=== PATIENT | female | born 1980 | race Caucasian/White ===

== ENCOUNTER → 2016-12-19 | Outpatient (CLI) | payer OTHER ==
[2016-12-19 13:13] LABS: Estradiol 66 pg/mL
[2016-12-19 15:44] LABS: DHEA Sulfate 91.3 ug/dL (26.0-430.0)
== END | disposition home or self-care (01) ==
LOC: LABWHC1 08:11
PROVIDERS: ATTEND Family Medicine
DX: E34.9 Endocrine disorder, unspecified (principal)
CPT/HCPCS: 36415; 82627; 82670; 84144; 84402; 84403

== ENCOUNTER → 2017-06-21 | Outpatient (CLI) | payer OTHER | END | disposition home or self-care (01) | LOC: LABWHC1 13:54 | PROVIDERS: ATTEND Family Medicine | DX: N95.1 Menopausal and female climacteric states (principal) | CPT/HCPCS: 36415; 82626; 82670; 84144; 84402; 84403 ==

== ENCOUNTER → 2019-11-23 | Outpatient (CLI) | payer OTHER ==
--- NOTE | 2019-11-24 08:52 | US ---
EXAMINATION TYPE: US pelvis complete transvag DATE OF EXAM: 11/23/2019 COMPARISON: Pelvic ultrasound January 10, 2010 CLINICAL HISTORY: R10.2 Pelvic pain. Hx ablation x years ago. Cramping. Hx ovarian cysts TECHNIQUE: . Transabdominal sonographic images of the pelvis were acquired. Transvaginal sonographi c images were medically necessary to better assess the following anatomy: endometrium Date of LMP: unknown, EXAM MEASUREMENTS: Uterus: 7.9 x 5.7 x 5.2 cm Endometrial Stripe: 0.5 cm-estimated Right Ovary: 2.4 x 1.2 x 0.8 cm Left Ovary: 2.6 x 1.1 x 1.1 cm 1. Uterus: Retroverted Heterogenous 2. Endometrium: suboptimal visualization due to ablation 3. Right Ovary: wnl 4. Left Ovary: wnl 5. Bilateral Adnexa: free fluid seen in right adnexa 6. Posterior cul-de-sac: free fluid Cervix-nabothian cysts Heterogeneous uterus with endometrium measuring 5 to 7 mm. Small amount of free fluid in the pelvis e xtending towards right adnexa. Both ovaries identified. Ovaries somewhat small in size. Ovaries show no measurable follicles. No leydi picious adnexal masses. IMPRESSION: Small amount of free fluid in the pelvis extending towards right adnexa of uncertain etio logy.
== END | disposition home or self-care (01) ==
LOC: RADUSMAIN 17:28
PROVIDERS: ATTEND Family Medicine
DX: R93.41 Abnormal radiologic findings on diagnostic imaging of renal pelvis, ureter, or bladder (principal)
CPT/HCPCS: 76830; 76856

== ENCOUNTER 2020-11-11 11:58 | Emergency (ER) | payer OTHER ==
[2020-11-11 12:05] VITALS: PULSE 70; TEMP 98.5
[2020-11-11] MEDS ORDERED: SODIUM CHLORIDE 0.9% 500 ML 500 ML IV ONE (12:52)
[2020-11-11 13:43] LABS: ALT 21 U/L (4-34); AST 28 U/L (14-36); African American GFR (CKD) >90 (>60 ml/min/1.73 sqM); Albumin 4.2 g/dL (3.5-5.0); Alkaline Phosphatase 65 U/L (38-126); Anion Gap 4 mmol/L; Blood Urea Nitrogen 10 mg/dL (7-17); Calcium 9.5 mg/dL (8.4-10.2); Carbon Dioxide 27 mmol/L (22-30); Chloride 107 mmol/L (98-107); Glucose 92 mg/dL (74-99); Lipase 93 U/L (23-300); Non-African American GFR(CKD) >90 (>60 ml/min/1.73 sqM); Potassium 4.3 mmol/L (3.5-5.1); Sodium 138 mmol/L (137-145); Total Bilirubin 0.6 mg/dL (0.2-1.3)
[2020-11-11 13:46] LABS: Basophils # (A) 0.1 k/uL (0-0.2); Basophils % (A) 1 %; Eosinophils # (A) 0.1 k/uL (0-0.7); Eosinophils % (A) 2 %; HCT 44.2 % (34.0-46.0); HGB 15.4 gm/dL (11.4-16.0); Lymphocytes # (A) 1.3 k/uL (1.0-4.8); Lymphocytes % (A) 25 %; MCH 30.1 pg (25.0-35.0); MCHC 34.8 g/dL (31.0-37.0); MCV 86.4 fL (80.0-100.0); Mean Platelet Volume 7.2; Monocytes # (A) 0.3 k/uL (0-1.0); Monocytes % (A) 6 %; Neutrophils # (A) 3.4 k/uL (1.3-7.7); Neutrophils % (A) 64 %; Platelet Count 209 k/uL (150-450); RBC 5.12 m/uL (3.80-5.40); RDW 12.6 % (11.5-15.5); WBC 5.2 k/uL (3.8-10.6)
[2020-11-11 13:48] LABS: Appearance,Urine Clear (Clear); Bilirubin,Urine Negative (Negative); Blood,Urine Negative (Negative); Color,Urine Yellow; Glucose,Urine (UA) Negative (Negative); Ketones,Urine Negative (Negative); Leukocyte Esterase,Urine Negative (Negative); Nitrite,Urine Negative (Negative); PH, Urine 6.5 (5.0-8.0); Protein,Urine Negative (Negative); Specific Gravity,Urine 1.014 (1.001-1.035); Urobilinogen,Urine <2.0 mg/dL (<2.0)
--- NOTE | 2020-11-11 14:06 | US ---
EXAMINATION TYPE: US abdomen limited DATE OF EXAM: 11/11/2020 COMPARISON: CT 12/13/2009 CLINICAL HISTORY: liver, gallbladder. Area visualized on CT at [facility] EXAM MEASUREMENTS: Liver Length: 13.0 cm Gallbladder Wall: 0.2 cm CBD: 0.3 cm Right Kidney: 9.3 x 5.0 x 5.0 cm Pancreas: Pancreatic head obscured by bowel gas, visualized portions appear wnl Liver: Hyperechoic area visualized measuring 3.2 x 2.7 x 2.6 cm, possible hemangioma vs other Gallbladder: wnl Evidence for sonographic Dawson's sign: No CBD: wnl Right Kidney: No hydronephrosis or masses seen IMPRESSION: 1. Suspected hemangioma within the liver. Consider confirmation with contrast CT abdomen or MRI.
--- NOTE | 2020-11-11 15:14 | ED ---
Female Urogenital HPI - General Chief complaint: Urogenital Stated complaint: Kidney pain Time Seen by Provider: 11/11/20 12:13 Source: patient Mode of arrival: ambulatory Limitations: no limitations - History of Present Illness Initial comments: 40yo female prsenting for cc of b/l low back pain. pt statse she keeping getting positive urine cultures for GBS. she states she has been on 3 antibiotics. initially she had some dysuria about 1 month ago and she states that has gone away. denies fevers, nausea, vomiting, abdominal or pelvic pain. Denies noting any vaginal discharge or pain wtih sex. patient denies injury to back. pt statse CT wo contrast revealed liver lesion but no kidney stones. pt statse she is concerned that the antibiotics are causing symptoms. no additional complaints. pt appears well nontoxic in no acute distress. - Related Data Home Medications Medication Instructions Recorded Confirmed Ibuprofen [Motrin Ib] 1,000 mg PO Q8H PRN 11/11/20 11/11/20 Thyroid,Pork [[place] Thyroid] 15 mg PO DAILY 11/11/20 11/11/20 Allergies Allergy/AdvReac Type Severity Reaction Status Date / Time hydrocodone bitartrate Allergy Rash/Hives Verified 11/11/20 13:31 [From Vicodin] meperidine HCl [From Demerol] Allergy Rash/Hives Verified 11/11/20 13:31 Review of Systems ROS Statement: Those systems with pertinent positive or pertinent negative responses have been documented in the HPI. ROS Other: All systems not noted in ROS Statement are negative. Past Medical History Additional Past Medical History / Comment(s): migraines, kidney stones History of Any Multi-Drug Resistant Organisms: None Reported Past Surgical History: No Surgical Hx Reported Past Psychological History: No Psychological Hx Reported Past Alcohol Use History: None Reported Past Drug Use History: None Reported General Exam - General Exam Comments Initial Comments: General: The patient is awake and alert, in no distress, and does not appear acutely ill. Eye: Pupils are equal, round and reactive to light, extra-ocular movements are intact. No nystagmus. There is normal conjunctiva bilaterally. No signs of icterus. Ears, nose, mouth and throat: There are moist mucous membranes and no oral lesions. Neck: The neck is supple, there is no tenderness or JVD. Cardiovascular: There is a regular rate and rhythm. No murmur, rub or gallop is appreciated. Respiratory: Lungs are clear to auscultation, respirations are non-labored, breath sounds are equal. No wheezes, stridor, rales, or rhonchi. Gastrointestinal: Soft, non-distended, non-tender abdomen without masses or organomegaly noted. There is no rebound or guarding present. No CVA tenderness. : Thin white discharge in vault, moderate amount, cervical lesion noted and discussed with patient during exam. Musculoskeletal: Normal inspection of back no midline tenderenss bandlike tenderness over lumbar spine. Normal ROM, no tenderness. Strength 5/5. Sensation intact. Pulses equal bilaterally 2+. Neurological: A&O x 3. CN II-XII intact, There are no obvious motor or sensory deficits. Coordination appears grossly intact. Speech is normal. Skin: Skin is warm and dry and no rashes or lesions are noted. Psychiatric: Cooperative, appropriate mood & affect, normal judgment. Limitations: no limitations Course Vital Signs 11/11/20 11/11/20 12:00 15:33 Temperature 98.5 F Pulse Rate 70 70 Respiratory 18 16 Rate Blood Pressure 144/84 122/79 O2 Sat by Pulse 100 99 Oximetry Medical Decision Making - Medical Decision Making Labs stable. Pain below CVA area. no stone on CT report sent from PCP. US liver feels findings most consistent with hemangioma patient has no right upper quadrant pain. pt urine unremarkable. afebrile normal kidney studies. at this time urine culture and vaginal cultures pending. pt is to f/u with OBGYN and PCP> discharged appearing well, recommended contrast CT for liver evaluation or MRI. Attending agreeable to care plan. - Lab Data Result diagrams: 11/11/20 13:18 11/11/20 13:18 Lab Results 11/11/20 11/11/20 11/11/20 Range/Units 13:18 13:18 13:18 WBC 5.2 (3.8-10.6) k/uL RBC 5.12 (3.80-5.40) m/uL Hgb 15.4 (11.4-16.0) gm/dL Hct 44.2 (34.0-46.0) % MCV 86.4 (80.0-100.0) fL MCH 30.1 (25.0-35.0) pg MCHC 34.8 (31.0-37.0) g/dL RDW 12.6 (11.5-15.5) % Plt Count 209 (150-450) k/uL MPV 7.2 Neutrophils % 64 % Lymphocytes % 25 % Monocytes % 6 % Eosinophils % 2 % Basophils % 1 % Neutrophils # 3.4 (1.3-7.7) k/uL Lymphocytes # 1.3 (1.0-4.8) k/uL Monocytes # 0.3 (0-1.0) k/uL Eosinophils # 0.1 (0-0.7) k/uL Basophils # 0.1 (0-0.2) k/uL Sodium (137-145) mmol/L Potassium (3.5-5.1) mmol/L Chloride (98-107) mmol/L Carbon Dioxide (22-30) mmol/L Anion Gap mmol/L BUN (7-17) mg/dL Creatinine (0.52-1.04) mg/dL Est GFR (CKD-EPI)AfAm (>60 ml/min/1.73 sqM) Est GFR (CKD-EPI)NonAf (>60 ml/min/1.73 sqM) Glucose (74-99) mg/dL Calcium (8.4-10.2) mg/dL Total Bilirubin (0.2-1.3) mg/dL AST (14-36) U/L ALT (4-34) U/L Alkaline Phosphatase (38-126) U/L Total Protein (6.3-8.2) g/dL Albumin (3.5-5.0) g/dL Lipase (23-300) U/L Urine Color Yellow Urine Appearance Clear (Clear) Urine pH 6.5 (5.0-8.0) Ur Specific [place] 1.014 (1.001-1.035) Urine Protein Negative (Negative) Urine Glucose (UA) Negative (Negative) Urine Ketones Negative (Negative) Urine Blood Negative (Negative) Urine Nitrite Negative (Negative) Urine Bilirubin Negative (Negative) Urine Urobilinogen <2.0 (<2.0) mg/dL Ur Leukocyte Esterase Negative (Negative) Urine HCG, Qual Not Detected (Not Detectd) Trichomonas Ag (Rapid) (Negative) 11/11/20 11/11/20 Range/Units 13:18 16:00 WBC (3.8-10.6) k/uL RBC (3.80-5.40) m/uL Hgb (11.4-16.0) gm/dL Hct (34.0-46.0) % MCV (80.0-100.0) fL MCH (25.0-35.0) pg MCHC (31.0-37.0) g/dL RDW (11.5-15.5) % Plt Count (150-450) k/uL MPV Neutrophils % % Lymphocytes % % Monocytes % % Eosinophils % % Basophils % % Neutrophils # (1.3-7.7) k/uL Lymphocytes # (1.0-4.8) k/uL Monocytes # (0-1.0) k/uL Eosinophils # (0-0.7) k/uL Basophils # (0-0.2) k/uL Sodium 138 (137-145) mmol/L Potassium 4.3 (3.5-5.1) mmol/L Chloride 107 (98-107) mmol/L Carbon Dioxide 27 (22-30) mmol/L Anion Gap 4 mmol/L BUN 10 (7-17) mg/dL Creatinine 0.59 (0.52-1.04) mg/dL Est GFR (CKD-EPI)AfAm >90 (>60 ml/min/1.73 sqM) Est GFR (CKD-EPI)NonAf >90 (>60 ml/min/1.73 sqM) Glucose 92 (74-99) mg/dL Calcium 9.5 (8.4-10.2) mg/dL Total Bilirubin 0.6 (0.2-1.3) mg/dL AST 28 (14-36) U/L ALT 21 (4-34) U/L Alkaline Phosphatase 65 (38-126) U/L Total Protein 7.0 (6.3-8.2) g/dL Albumin 4.2 (3.5-5.0) g/dL Lipase 93 (23-300) U/L Urine Color Urine Appearance (Clear) Urine pH (5.0-8.0) Ur Specific [place] (1.001-1.035) Urine Protein (Negative) Urine Glucose (UA) (Negative) Urine Ketones (Negative) Urine Blood (Negative) Urine Nitrite (Negative) Urine Bilirubin (Negative) Urine Urobilinogen (<2.0) mg/dL Ur Leukocyte Esterase (Negative) Urine HCG, Qual (Not Detectd) Trichomonas Ag (Rapid) Negative (Negative) Disposition Clinical Impression: Back pain, Vaginal discharge, Hemangioma Disposition: HOME SELF-CARE Condition: Good Instructions (If sedation given, give patient instructions): Flank Pain (ED), Vaginal Discharge (ED) Additional Instructions: Please use medication as discussed. Please follow-up with family doctor in the next 2 days, Dr. Brantley for hemangioma and OBGYN for discharge/PAP. Please return to emergency room if the symptoms increase or worsen or for any other concerns. Is patient prescribed a controlled substance at d/c from ED?: No Referrals: Ihsan Gayle III, MD [Primary Care Provider] - 1-2 days Deborah Brantley MD [STAFF PHYSICIAN] - 1-2 days Evelia Harmon DO [Doctor of Osteopathic Medicine] - 1-2 days Time of Disposition: 15:13
[2020-11-11 15:35] VITALS: BP 122/79; RESP 16
[2020-11-12 14:53] LABS: C. trachomatis,PCR Negative (Neg,Equiv); Chlamydia trachomatis Source Vagina; N. gonorrhoeae,PCR Negative (Neg,Equiv); Neisseria Source Vagina
== END 2020-11-11 15:35 | disposition home or self-care (01) ==
LOC: EC 11:58
DX: D18.00 Hemangioma unspecified site (principal); N89.8 Other specified noninflammatory disorders of vagina; M54.5 Low back pain; Z79.890 Hormone replacement therapy; Z88.5 Allergy status to narcotic agent; Z87.442 Personal history of urinary calculi
CPT/HCPCS: 36415; 76705; 80053; 81003; 81025; 83690; 85025; 87070; 87491; 87591; 87808; 99284

== ENCOUNTER → 2020-12-07 | Outpatient (CLI) | payer OTHER ==
--- NOTE | 2020-12-08 07:32 | XR ---
EXAMINATION TYPE: XR elbow complete LT DATE OF EXAM: 12/07/2020 COMPARISON: None HISTORY: Pain, fall TECHNIQUE: Three-view left elbow FINDINGS: Radius aligns normally with the humerus. Anterior fat pad is normal. No elevation of softball umpire ior fat pad is evident. No acute fractures or dislocations are evident. IMPRESSION: 1. Normal three-view left elbow
== END | disposition home or self-care (01) ==
LOC: RADXRMAIN 15:45
PROVIDERS: ATTEND Family Medicine
DX: M25.522 Pain in left elbow (principal)

== ENCOUNTER → 2021-08-11 | Outpatient (CLI) | payer OTHER ==
[2021-08-11 10:52] LABS: Basophils # (A) 0.05 X 10*3/uL (0.00-0.10); Eosinophils # (A) 0.18 X 10*3/uL (0.04-0.35); Eosinophils % (A) 3.5 %; HCT 39.3 % (37.2-46.3); HGB 13.1 g/dL (12.0-15.0); Lymphocytes # (A) 1.47 X 10*3/uL (0.90-5.00); Lymphocytes % (A) 28.4 %; MCH 29.2 pg (27.0-32.0); MCHC 33.3 g/dL (32.0-37.0); MCV 87.7 fL (80.0-97.0); Monocytes # (A) 0.55 X 10*3/uL (0.20-1.00); Monocytes % (A) 10.6 %; Neutrophils # (A) 2.92 X 10*3/uL (1.80-7.70); Neutrophils % (A) 56.3 %; Platelet Count 231 X 10*3/uL (140-440); RBC 4.48 X 10*6/uL (4.10-5.20); RDW 12.8 % (11.5-14.5); WBC 5.18 X 10*3/uL (4.50-10.00)
== END | disposition home or self-care (01) ==
LOC: LABWHC1 07:54
PROVIDERS: ATTEND Family Medicine
DX: N95.1 Menopausal and female climacteric states (principal); E03.9 Hypothyroidism, unspecified
CPT/HCPCS: 36415; 82306; 82670; 82728; 84443; 84481; 85025

== ENCOUNTER → 2022-11-09 | Outpatient (CLI) | payer OTHER ==
[2022-11-09 23:19] LABS: Basophils # (A) 0.07 X 10*3/uL (0.00-0.10); Basophils % (A) 1.2 %; Eosinophils # (A) 0.18 X 10*3/uL (0.04-0.35); HCT 38.7 % (37.2-46.3); HGB 12.7 g/dL (12.0-15.0); Immature Grans, Automated 0.2 %; Lymphocytes # (A) 1.63 X 10*3/uL (0.90-5.00); Lymphocytes % (A) 26.8 %; MCH 29.4 pg (27.0-32.0); MCHC 32.8 g/dL (32.0-37.0); MCV 89.6 fL (80.0-97.0); Mean Platelet Volume 10.4 fL (9.5-12.2); Monocytes # (A) 0.67 X 10*3/uL (0.20-1.00); NRBC Per 100 WBC 0 /100 WBCS (0.0-0.0); Neutrophils # (A) 3.52 X 10*3/uL (1.80-7.70); Neutrophils % (A) 57.8 %; Platelet Count 268 X 10*3/uL (140-440); RBC 4.32 X 10*6/uL (4.10-5.20); RDW 12.7 % (11.5-14.5); WBC 6.08 X 10*3/uL (4.50-10.00)
[2022-11-10 00:05] LABS: Estradiol 31.4 pg/mL; T4, Free (Free Thyroxine) 1.17 ng/dL (0.800-1.800)
== END | disposition home or self-care (01) ==
LOC: LABWHC1 15:50
PROVIDERS: ATTEND Family Medicine
DX: E03.9 Hypothyroidism, unspecified (principal); N95.1 Menopausal and female climacteric states
CPT/HCPCS: 36415; 82306; 82670; 82728; 84439; 84443; 84481; 85025

== ENCOUNTER → 2023-12-11 | Outpatient (CLI) | payer OTHER ==
--- NOTE | 2023-12-11 22:07 | US ---
EXAMINATION TYPE: US pelvic complete DATE OF EXAM: 12/11/2023 COMPARISON: 11/23/2019 CLINICAL INDICATION: Female, 43 years old with history of D25.9 LEIOMYOMA OF UTERUS, UNSPECIFIED, N95 .1; physician want updated imaging after being on HRT, patient asymptomatic TECHNIQUE: Transabdominal (TA). Transabdominal sonographic images of the pelvis were acquired. pat ient declined Transvaginal at this time Date of LMP: ablation 10 yrs prior EXAM MEASUREMENTS: Uterus: 7.0x5.6x5.5 cm Endometrial Stripe: 0.5 cm Right Ovary: 3.5x1.5x1.7 cm Left Ovary: 1.4x2.3x5.0 cm 1. Uterus: Retroverted large hypoechoic are noted at the right lower uterine segment measuring 3.5x3 .0x3.7cm, nabothian cyst again seen in cervix 2. Endometrium: wnl 3. Right Ovary: 3.5x1.5x1.9 4. Left Ovary: 3.0x1.4x2.3 5. Bilateral Adnexa: Obscured by overlying bowel gas 6. Posterior cul-de-sac: wnl IMPRESSION: 1. No evidence for acute process. 2. Endometrium within normal limits for thickness. 3. Lower uterine segment suspected fibroid
== END | disposition home or self-care (01) ==
LOC: RADUSWWP 16:05
PROVIDERS: ATTEND Family Medicine
DX: N95.1 Menopausal and female climacteric states (principal); D25.9 Leiomyoma of uterus, unspecified
CPT/HCPCS: 76856

== ENCOUNTER → 2024-08-04 | Outpatient (CLI) | payer BC ==
--- NOTE | 2024-08-04 17:05 | US ---
EXAMINATION TYPE: US pelvis complete transvag DATE OF EXAM: 08/04/2024 COMPARISON: US to 05/23/2024 CLINICAL INDICATION: Female, 44 years old with history of D25.9 LEIOMYOMA OF UTERUS, UNSPECIFIED N95. 1; F/U prior exam TECHNIQUE: Transvaginal (TV) and Transabdominal (TA) . Transabdominal sonographic images of the pel vis were acquired. Transvaginal sonographic images were medically necessary to better assess the fol lowing anatomy: Ordered per physician Date of LMP: Years ago due to ablation EXAM MEASUREMENTS: Uterus: 8.7 x 4.9 x 5.3 cm Endometrial Stripe: 0.6 cm. No suspicious thickening is evident. Endometrial stripe is fairly well vi sualized considering prior endometrial ablation. Right Ovary: 2.8 x 2.7 x 1.8 cm Left Ovary: 2.4 x 2.1 x 1.5 cm 1. Uterus: Retroverted Entire uterus appears heterogeneous with no evidence of large fibroid as visu alized on prior/ small solid lesion within left uterine body= 1.1 x 0.8 x 0.8 cm 2. Endometrium: Borders not well delineated due to h/o ablation 3. Right Ovary: wnl 4. Left Ovary: wnl 5. Bilateral Adnexa: wnl 6. Posterior cul-de-sac: Scant amount of free fluid IMPRESSION: 1. Uterine Fibroid. [facility], Workstation: [email or web address], 08/04/2024 5:02 PM
== END | disposition home or self-care (01) ==
LOC: RADUSWWP 16:12
PROVIDERS: ATTEND Family Medicine
DX: D25.9 Leiomyoma of uterus, unspecified (principal); N95.1 Menopausal and female climacteric states
CPT/HCPCS: 76830; 76856

== ENCOUNTER → 2025-02-25 | Outpatient (CLI) | payer BC ==
--- NOTE | 2025-02-25 16:20 | US ---
EXAMINATION TYPE: US pelvis complete transvag DATE OF EXAM: 02/25/2025 COMPARISON: US(08/04/2024) CLINICAL INDICATION: Female, 45 years old with history of D25.9 LEIOMYOMA OF UTERUS, UNSPECIFIED; fib roid f/u TECHNIQUE: Transvaginal (TV) and Transabdominal (TA) . Transabdominal grayscale sonographic images of the pelvis were acquired. Transvaginal sonographic im ages were medically necessary to better assess the following anatomy: Doppler imaging: Color Doppler Images were obtained. FINDINGS: EXAM MEASUREMENTS: Uterus: 8.9x5.6x6.3cm Endometrial Stripe: 0.8cm Right Ovary: 2.7x0.9x1.0cm Left Ovary: 2.2x0.8x1.2cm LMP: years ago due to ablation 1. Uterus: Retroverted known fibroid again seen: 0.7x0.6x1.0cm Prior US(08/04/2024): 1.1x0.8x0.8cm Cx: multiple known nabothian cysts again seen 2. Endometrium: 0.8cm 3. Right Ovary: dominant follicles noted 4. Left Ovary: dominant follicles noted 5. Bilateral Adnexa: wnl 6. Posterior cul-de-sac: wnl Retroverted uterus with redemonstrated 1 cm intramural fibroid. Endometrium is normal thickness. Mult iple nabothian cysts redemonstrated. Both ovaries appear unremarkable with follicles demonstrated. Co nirmal flow demonstrated within both ovaries. No free fluid. IMPRESSION: 1. No acute pelvic process. 2. Stable 1 cm uterine fibroid. [facility], , 02/25/2025 4:18 PM
== END | disposition home or self-care (01) ==
LOC: RADUSWWP 15:25
PROVIDERS: ATTEND Family Medicine
DX: D25.1 Intramural leiomyoma of uterus (principal); N88.8 Other specified noninflammatory disorders of cervix uteri
CPT/HCPCS: 76830; 76856